=== PATIENT | male | born 2000 | race Two or more races ===

== ENCOUNTER 2024-03-10 14:32 | Emergency (ER) | payer MEDICAID ==
[~2024-03-10] VITALS: Ht 170.2 cm; Wt 70.3 kg
[2024-03-10 15:07] VITALS: BP 122/79; TEMP 98.3
[2024-03-10] MEDS ORDERED: AZIT250T PO (16:17)
[2024-03-10] MEDS ORDERED: FLUT16SP16 BNOSTRILS (16:17)
[2024-03-10] MEDS ORDERED: CETI-194 PO (16:17)
[2024-03-10 16:26] VITALS: O2SAT 97
== END 2024-03-10 16:27 | disposition home or self-care (01) ==
LOC: ER 14:39
DX: J32.9 Chronic sinusitis, unspecified (principal); J31.0 Chronic rhinitis; Z60.2 Problems related to living alone